=== PATIENT | male | born 1960 | race African-American/Black ===

== ENCOUNTER 2016-10-27 12:10 | Day surgery (SDC) | payer OTHER ==
[~2016-10-27] VITALS: Ht 185.4 cm; Wt 86.1 kg
[~2016-10-27 12:10] MED LIST: AMLO-147 PO; CHORTHALIDONE; FER325 PO; MESA400C PO; NAPR-688 PO; OMEP20CA16 PO
[2016-10-27 13:47] VITALS: Ht 185.4 cm; Wt 86.1 kg
[2016-10-27] MEDS ORDERED: BUPR300T48 PO (13:57)
[2016-10-27] MEDS ORDERED: FENTAnyl 50 MCG/ML VIAL ONE (15:37)
[2016-10-27] MEDS ORDERED: MIDAZOLAM 1 MG/ML 2 ML INJ ONE (15:37)
[2016-10-27] MEDS ORDERED: PROPOFOL 20 ML ONE (15:37)
[2016-10-27 15:42] VITALS: BP 124/86; PULSE 60; RESP 20
[2016-10-27 16:34] VITALS: BP 119/87; PULSE 64; RESP 13
--- NOTE | 2016-10-28 10:47 | GILP ---
DATE OF PROCEDURE: 10/27/2016 NAME OF PROCEDURE: Esophagogastroduodenoscopy with biopsies. SURGEON: Shantal Long MD. PREOPERATIVE DIAGNOSIS: POSTOPERATIVE DIAGNOSIS: DESCRIPTION OF PROCEDURE: BRIEF HISTORY AND INDICATIONS: The patient is being evaluated for previous history of gastric ulcer ation. PREMEDICATION: Monitored anesthesia care by anesthesiologist. INSTRUMENT USED: TECHNIQUE: After informed consent, with the patient/relatives understanding the procedure, its indic ations, potential risks and complications, including but not limited to: allergic reaction, bleeding , perforation or infection, and after all pertinent questions were answered to the patients satisfac tion, the patient/relatives signed witnessed informed consent. Following this, premedication was administered slowly IV push under careful cardiovascular and respi ratory monitoring with pulse oximetry, automatic blood pressure and shelter monitor. Once the sedative effect was achieved the patient was place in the left lateral decubitus, the panen doscope was introduced and advanced under visual control. Careful examination of the upper gastrointestinal tract, both on insertion as well as withdrawal of the instrument disclosed the following findings: ESOPHAGUS: The mucosa of the entire esophagus appears within normal limits. There is no evidence of esophagitis, varices, neoplasm or stricture. No hiatal hernia identified. STOMACH: Upon entrance to the stomach air was insufflated, the gastric alcaraz distended normally. The mucosa of the fundus, body and antrum of the stomach was carefully examined, shows erythema and ernesto ma of the mucosa of a moderate degree. Previously noted gastric ulceration is completely healed. PYLORUS: The pylorus appears patent and within normal limits, with no evidence of gastric outlet obs truction. DUODENUM: The duodenal mucosa was carefully examined in the duodenal bulb as well as the second port ion of the duodenum and appears unremarkable with no evidence of duodenitis, ulcer or neoplasm. The instrument was then withdrawn, the patient tolerated the procedure well and was transfer out of the endoscopy suite awake, and in good condition to continue recovery under observation. IMPRESSION: 1. Healed gastric ulceration. 2. Residual gastritis, rule out Helicobacter pylori infection, biopsies obtained. RECOMMENDATIONS: The patient will be continued with treatment with PPIs. Pathology will be reviewe d as soon as available. Further recommendation will depend on the patient's clinical course as well as review of biopsies. Dictated By: SHANTAL LONG MS/DAE Conf#: [id number] DID#: [id number] CC: Shantal Long;*End*
== END 2016-10-27 16:29 | disposition home or self-care (01) ==
LOC: GIL 12:10
PROVIDERS: ATTEND Internal Medicine Gastroenterology
DX: K21.9 Gastro-esophageal reflux disease without esophagitis (principal); I10 Essential (primary) hypertension; Z87.898 Personal history of other specified conditions; F17.210 Nicotine dependence, cigarettes, uncomplicated; K25.9 Gastric ulcer, unspecified as acute or chronic, without hemorrhage or perforation; K64.9 Unspecified hemorrhoids; M19.90 Unspecified osteoarthritis, unspecified site; K29.70 Gastritis, unspecified, without bleeding; Z86.73 Personal history of transient ischemic attack (TIA), and cerebral infarction without residual deficits
CPT/HCPCS: 43239; 88305; 88312; J2250; J3010; Z7610